=== PATIENT | female | born 1955 | race Caucasian/White ===

== ENCOUNTER → 2017-03-02 | Outpatient (CLI) | payer OTHER ==
[~2017-03-02] MED LIST: ALPRAZOLAM0.5 MG PO; CETIRIZINE HCL10 MG PO; CYCLOBENZAPRINE10 MG PO; DULOXETINE 30MG30 MG PO; ESTRADIOL1 MG PO; FENTANYL TR75 MCG/HR TD; FUROSEMIDE 20MG20 MG PO; KEFLEX 500MG.500 MG PO; LORTAB 7.5/3251 TAB PO; POTASSIUM CHLO20 ME2 PO; SPIRONOLACTONE25 MG PO; SUNMARK OMEPRAZ20 MG PO
[2017-03-02 07:59] LABS: LYMPH # 1.2 K/mm3 (0.7-4.5); LYMPH % 33.7 % (10-50.0)
[2017-03-02 08:06] LABS: HEMOGLOBIN 14.3 g/dL (12.2-16.2)
[2017-03-02 08:53] LABS: BUN 8 mg/dL (7-18); GFR (ESTIMATED) 102 ML/MIN (59-)
== END ==
LOC: LAB 07:29
PROVIDERS: Internal Medicine Adolescent Medicine
DX: M47.819 Spondylosis without myelopathy or radiculopathy, site unspecified (principal); E53.8 Deficiency of other specified B group vitamins; E04.1 Nontoxic single thyroid nodule; R60.9 Edema, unspecified